=== PATIENT | female | born 1955 | race Two or more races ===

== ENCOUNTER 2018-05-21 13:36 | Emergency (ER) | payer OTHER ==
[~2018-05-21] VITALS: Ht 149.9 cm; Wt 58.1 kg
== END 2018-05-21 15:30 | disposition home or self-care (01) ==
LOC: ER 13:36
DX: J06.9 Acute upper respiratory infection, unspecified (principal)

== ENCOUNTER → 2022-10-08 | Outpatient (CLI) | payer OTHER | END | disposition home or self-care (01) | LOC: SONOGRAMA 12:03 | PROVIDERS: ATTEND Internal Medicine | DX: E04.2 Nontoxic multinodular goiter (principal) ==

== ENCOUNTER 2023-05-17 09:20 | Outpatient (CLI) | payer OTHER | END 2023-05-17 09:29 | disposition home or self-care (01) | LOC: MAMO-SONO 09:20 | PROVIDERS: ATTEND Specialist | DX: N60.11 Diffuse cystic mastopathy of right breast (principal); N60.12 Diffuse cystic mastopathy of left breast; Z12.31 Encounter for screening mammogram for malignant neoplasm of breast ==

== ENCOUNTER 2024-09-27 21:47 | Emergency (ER) | payer OTHER ==
[~2024-09-27] VITALS: Ht 149.9 cm; Wt 59.9 kg
[2024-09-27] MEDS ORDERED: HYOSCYAMINE SULFATE 0.125 MG TAB.SUBL SL ONE (22:15)
[2024-09-27] MEDS ORDERED: FAMOtidine 10 MG/ML (4ML VIAL) IV PUSH ONE (22:30)
[2024-09-27] MEDS ORDERED: KETOROLAC TROMETHAMINE 30 MG VIAL IV ONE (22:30)
[2024-09-27] MEDS ORDERED: KETOROLAC TROMETHAMINE 30 MG VIAL ONE (22:35)
[2024-09-27] MEDS ORDERED: FAMOTIDINE/PF 20 MG/2 ML VIAL ONE (22:36)
[2024-09-27] MEDS ORDERED: HYOSCYAMINE SULFATE 0.125 MG TAB.SUBL ONE (22:36)
[2024-09-27 23:08] LABS: HEMATOCRIT 41.4 % (36.0-45.00); HEMOGLOBIN 14.2 g/dL (12.0-15.00); MEAN CELL VOLUME 90.6 fL (80.00-100.00); MEAN CORPUSCULAR HEMOGLOBIN 31.1 pg (27.00-32.0); MEAN CORPUSCULAR HGB CONC 34.3 g/dl (32.0-36.0); PLATELET COUNT 355 K/uL (150-450); RED BLOOD COUNT 4.57 M/uL (4.00-6.00); RED CELL DISTRIBUTION WIDTH 12.5 % (11.5-14.5)
[2024-09-27] MEDS ORDERED: CIPRO500 MG PO (23:48)
[2024-09-27] MEDS ORDERED: METRONIDAZOLE500 MG PO (23:48)
[2024-09-27] MEDS ORDERED: PEPCID AC20 MG PO (23:48)
[2024-09-27] MEDS ORDERED: LEVSIN/SL0.125 MG SL (23:48)
== END 2024-09-28 00:02 | disposition home or self-care (01) ==
LOC: ER 21:49
PROVIDERS: General Practice
DX: R10.31 Right lower quadrant pain (principal); R14.1 Gas pain; K59.09 Other constipation; I10 Essential (primary) hypertension

== ENCOUNTER 2024-09-30 18:07 | Emergency (ER) | payer OTHER ==
[~2024-09-30] VITALS: Ht 149.9 cm; Wt 59.9 kg
[~2024-09-30 18:07] MED LIST: CIPRO500 MG PO; LEVSIN/SL0.125 MG SL; METRONIDAZOLE500 MG PO; PEPCID AC20 MG PO
[2024-09-30] MEDS ORDERED: INNOPRAN XL80 MG PO (18:26)
[2024-09-30] MEDS ORDERED: METOCLOPRAMIDE HCL 5 MG/ML VIAL IM STA (19:04)
[2024-09-30] MEDS ORDERED: HYOSCYAMINE SULFATE 0.125 MG TAB.SUBL SL STA (19:06)
[2024-09-30] MEDS ORDERED: KETOROLAC TROMETHAMINE 60 MG VIAL IM STA (19:06)
[2024-09-30] MEDS ORDERED: KETOROLAC TROMETHAMINE 60 MG VIAL IM ONE (19:12)
[2024-09-30] MEDS ORDERED: HYOSCYAMINE SULFATE 0.125 MG TAB.SUBL ONE (19:15)
[2024-09-30] MEDS ORDERED: METOCLOPRAMIDE HCL 5 MG/ML VIAL ONE (19:15)
== END 2024-09-30 20:24 | disposition home or self-care (01) ==
LOC: ER 18:08
DX: K30 Functional dyspepsia (principal); R53.81 Other malaise

== ENCOUNTER 2024-11-12 09:21 | Outpatient (CLI) | payer OTHER ==
[~2024-11-12 09:21] MED LIST changes: +INNOPRAN XL80 MG PO
== END 2024-11-12 09:31 | disposition home or self-care (01) ==
LOC: MAMO-SONO 09:21
PROVIDERS: ATTEND Specialist
DX: N60.11 Diffuse cystic mastopathy of right breast (principal); N60.12 Diffuse cystic mastopathy of left breast; R92.8 Other abnormal and inconclusive findings on diagnostic imaging of breast; R10.2 Pelvic and perineal pain

== ENCOUNTER 2024-11-23 13:21 | Outpatient (CLI) | payer OTHER | END 2024-11-23 13:22 | disposition home or self-care (01) | LOC: NUCLEAR 13:21 | PROVIDERS: ATTEND Specialist | DX: M81.0 Age-related osteoporosis without current pathological fracture (principal) ==

== ENCOUNTER 2025-02-13 13:22 | Outpatient (CLI) | payer OTHER | END 2025-02-13 13:30 | disposition home or self-care (01) | LOC: SONOGRAMA 13:22 | PROVIDERS: ATTEND Internal Medicine | DX: E04.2 Nontoxic multinodular goiter (principal) ==

== ENCOUNTER 2025-06-05 08:13 | Outpatient (CLI) | payer OTHER | END 2025-06-05 08:27 | disposition home or self-care (01) | LOC: TOM 08:13 | PROVIDERS: ATTEND Specialist | DX: N20.0 Calculus of kidney (principal) ==